=== PATIENT | female | born 1945 | race Caucasian/White ===

== ENCOUNTER → 2016-09-11 | Day surgery (SDC) | payer MEDICARE, BC ==
[2016-09-11] VITALS (8 sets, daily range): BP systolic 138–169; BP diastolic 50–61; PULSE 68–107; TEMP 97.4–98.5
[~2016-09-11] VITALS: Ht 172.7 cm; Wt 105.6 kg
[~2016-09-11] MED LIST: CRANBERRY FRUI405 MG PO; MOBIC15 MG PO; MULTI VITAMINS1 TAB PO; NATURAL E400 IU PO; NEURONTIN300 MG/CAP PO; PRIL40 PO; PRINZIDE 12.5 M1 TAB PO; VITAMIN D31000 IU PO; ZOCOR 20MG20 MG PO; ZOLOFT 50MG50 MG PO
== END | disposition home or self-care (01) ==
LOC: SDCO 10:33
DX: K80.10 Calculus of gallbladder with chronic cholecystitis without obstruction (principal); K85.10 Biliary acute pancreatitis without necrosis or infection; K21.0 Gastro-esophageal reflux disease with esophagitis; I10 Essential (primary) hypertension; E66.9 Obesity, unspecified; M19.90 Unspecified osteoarthritis, unspecified site; Z68.35 Body mass index [BMI] 35.0-35.9, adult; Z90.710 Acquired absence of both cervix and uterus
CPT/HCPCS: J0360; J2405; J2704; J2710; J3010; J7120; Q9967

== ENCOUNTER → 2016-11-27 | Outpatient (REF) | LOC: ZLAB.WCH 18:01 | DX: Z01.89 Encounter for other specified special examinations (principal) ==

== ENCOUNTER → 2017-04-17 | Outpatient (REF) | LOC: ZLAB.WCH 18:11 | DX: Z01.89 Encounter for other specified special examinations (principal) ==

== ENCOUNTER → 2017-08-21 | Outpatient (REF) ==
[2017-08-21 16:31] LABS: THYROID STIMULATING HORMONE 0.694 uIU/mL (0.465-4.680)
== END ==
LOC: ZLAB.WCH 15:44
PROVIDERS: Nurse Practitioner Family
DX: Z01.89 Encounter for other specified special examinations (principal)

== ENCOUNTER → 2017-11-29 | Outpatient (REF) ==
[2017-11-29 10:30] LABS: THYROID STIMULATING HORMONE 1.45 uIU/mL (0.465-4.680)
== END ==
LOC: ZLAB.WCH 09:49
PROVIDERS: Physician Assistant
DX: Z01.89 Encounter for other specified special examinations (principal)

== ENCOUNTER → 2017-11-29 | Outpatient (REF) | LOC: ZLAB.WCH 09:31 | DX: Z01.89 Encounter for other specified special examinations (principal) ==

== ENCOUNTER 2018-05-20 06:38 | Day surgery (SDC) | payer MEDICARE, BC ==
[~2018-05-20] VITALS: Ht 172.7 cm; Wt 107.1 kg
[2018-05-20] VITALS (7 sets, daily range): BP systolic 115–137; BP diastolic 47–70; PULSE 73–102; TEMP 97.3–98
[~2018-05-20 06:38] MED LIST changes: -CRANBERRY FRUI405 MG PO; +CRANBERRY FRUI425 MG PO
[2018-05-20] MEDS ORDERED: ZOLOFT 100MG100 MG PO (07:58)
--- NOTE | 2018-05-20 08:04 | NUR ---
TO RM AT 0720 FROM RADIOLOGY- CALL LIGHT IN REACH DAUGHTER AND AT BEDSIDE.
--- NOTE | 2018-05-20 10:00 | NUR ---
UP AMBULATED TO BATHROOM WITH ASSIST. TOLERATED WELL AND AMBULATED BACK TO BED. RECEIVED 2 NEW WARM BLANKETS. DAUGTHER AND STILL AT BEDSIDE.
--- NOTE | 2018-05-20 15:35 | NUR ---
TO RM 1 PER CART FROM PACU. DROWSY,BUT ANSWERS QUESTIONS COHERENTLY. DENIES PAIN OR DISCOMFORT, DENIES NAUSEA OR VOMITING NO DRAINAGE NOTED AT 2 INCISION SITES.
[2018-05-20] MEDS ORDERED: NORCO 325 MG-51 TAB PO (15:44)
--- NOTE | 2018-05-20 15:50 | NUR ---
ENCOURAGED PATIENT TO TAKE SOME DEEP BREATHS. RECEIVED WATER AND TAKING SIPS.
--- NOTE | 2018-05-20 16:05 | NUR ---
MORE AWAKE AND TALKING WITH STAFF. RECEIVED MUFFIN AND SITTING UP. 02 SAT 98% ON 02 AT 3L. DISCONTINUED IV AND INT FAMILY AT BEDSIDE.
--- NOTE | 2018-05-20 16:20 | NUR ---
ATE A FEW BITES OF MUFFIN AND FEW BITES OF A COOKIE FAMILY BROUGHT IN. PATIENT STATED SHE FEELS PRETTY GOOD.
--- NOTE | 2018-05-20 16:35 | NUR ---
UP AMBULATED TO BATHROOM. VOIDED AND TOLERATED WELL DISCONTINUED IV AND INT- COVERED WITH BANDAIDE. COBAN APPLED OVER THE BANDAIDE
--- NOTE | 2018-05-20 16:45 | NUR ---
RECIEVED DISCHARGE INSTRUCTIONS AND VERBALIZED UNDERSTANDING.
--- NOTE | 2018-05-20 16:52 | NUR ---
DISCHARGED PER WC BY NURSING STAFF TO PRIVATE CAR IN CARE OF DAUGHTER- ISAÍAS.
== END 2018-05-20 16:56 | disposition home or self-care (01) ==
LOC: SDCO 06:38
DX: C50.212 Malignant neoplasm of upper-inner quadrant of left female breast (principal); I10 Essential (primary) hypertension; K21.9 Gastro-esophageal reflux disease without esophagitis; M19.041 Primary osteoarthritis, right hand; M19.042 Primary osteoarthritis, left hand; F32.9 Major depressive disorder, single episode, unspecified; Z90.49 Acquired absence of other specified parts of digestive tract; Z96.653 Presence of artificial knee joint, bilateral; Z90.710 Acquired absence of both cervix and uterus
CPT/HCPCS: A9541; J1100; J2250; J2370; J2405; J2704; J2765; J2795; J3010; J7050; J7120

== ENCOUNTER → 2018-07-10 | Outpatient (REF) ==
[~2018-07-10] MED LIST changes: +NORCO 325 MG-51 TAB PO; +ZOLOFT 100MG100 MG PO
== END ==
LOC: ZLAB.WCH 13:58
DX: Z01.89 Encounter for other specified special examinations (principal)

== ENCOUNTER → 2019-04-27 | Outpatient (CLI) | payer MEDICARE, BC | LOC: MC.RAD 08:14 | DX: Z12.31 Encounter for screening mammogram for malignant neoplasm of breast (principal); Z85.3 Personal history of malignant neoplasm of breast; Z98.890 Other specified postprocedural states | CPT/HCPCS: G0279 ==

== ENCOUNTER → 2019-05-22 | Outpatient (CLI) | payer MEDICARE, BC | LOC: COL.RAD 08:55 | DX: C50.412 Malignant neoplasm of upper-outer quadrant of left female breast (principal); M88.1 Osteitis deformans of vertebrae | CPT/HCPCS: A9503 ==

== ENCOUNTER → 2020-03-28 | Outpatient (CLI) | payer MEDICARE, BC | LOC: COL.RAD 10:26 | DX: M25.511 Pain in right shoulder (principal) | CPT/HCPCS: J3301; Q9967 ==

== ENCOUNTER → 2023-07-10 | Outpatient (CLI) | payer MEDICARE, BC, MEDICAID | LOC: MC.RAD 13:53 | DX: N60.11 Diffuse cystic mastopathy of right breast (principal); N64.89 Other specified disorders of breast; C50.412 Malignant neoplasm of upper-outer quadrant of left female breast ==